=== PATIENT | male | born 1930 | race Caucasian/White ===

== ENCOUNTER → 2016-05-25 | Outpatient (CLI) | payer MEDICARE ==
[~2016-05-25] MED LIST: AMLO10TA2 PO; ASCO500T6 PO; ASPI-808 PO; CALC250T2 PO; CLOP75TA69 PO; CYAN250010 PO; FOLI0.8C PO; HYDR-3812 PO; POTA10CA43 PO; PRAV80TA2 PO; TERA10CA3 PO
--- NOTE | 2016-05-25 13:10 | Diagnostic Imaging Report ---
PROCEDURE: CT chest without contrast. TECHNIQUE: Multiple contiguous axial images were obtained through the chest without the use of intravenous contrast. INDICATION: Lung nodules. FINDINGS: The previous CTA chest exam of 04/24/2015 noted scattered subcentimeter pulmonary nodules in the right lung. The largest of these nodules measured 7 mm and was located along the periphery of the right upper lobe. That finding is again evident on this study and no different (image 23/67). The other pulmonary nodules in the right lung also seem stable when compared to the prior study. The 4 mm nodule in the left upper lung noted on the prior study is not as conspicuous on this exam. There is a 2 mm nodule along the posterior aspect of the left mid lung (image 34/67). This is also unchanged when compared to the prior study. There is no acute cardiopulmonary abnormality identified. There is no sign of failure, pneumonia, or pleural effusion. The heart size is within normal limits. Dense coronary artery calcifications are noted. The aorta is not abnormally dilated. There is no mediastinal or hilar adenopathy, although this exam is limited in evaluation of adenopathy due to the absence of intravenous contrast. The thyroid gland is unremarkable. The bone windows show no evidence for a fracture or for destructive lesion. The sections through the upper abdomen fail to show any sign of an acute abnormality. As noted on the prior study, the gallbladder is surgically absent. IMPRESSION: 1. The small noncalcified pulmonary nodules seen in both lungs on the prior study are again evident and do not appear to have changed adversely. Most likely, these nodules are benign. I would recommend that a six-month followup CT chest exam be performed for continued evaluation. 2. There is no evidence for an acute cardiopulmonary abnormality. 3. There is extensive coronary artery disease. Dictated by: Dictated on workstation # [id number]
== END ==
LOC: RAD 10:33
PROVIDERS: ATTEND Internal Medicine Critical Care Medicine
DX: R91.8 Other nonspecific abnormal finding of lung field (principal); R06.00 Dyspnea, unspecified
CPT/HCPCS: 71250

== ENCOUNTER → 2017-05-06 | Outpatient (CLI) | payer MEDICARE ==
[~2017-05-06] MED LIST changes: +ACHD5005 PO; -HYDR-3812 PO
--- NOTE | 2017-05-06 10:41 | Diagnostic Imaging Report ---
PROCEDURE: CT chest without contrast. TECHNIQUE: Multiple contiguous axial images were obtained through the chest without the use of intravenous contrast. INDICATION: Dyspnea. COPD. COMPARISON: 05/05/2016 FINDINGS: Evaluation of the lung gu demonstrates no focal consolidation, pleural effusion, nor pneumothorax. Multiple small micronodules are noted bilaterally and are stable. These are as follows: * Small 2 mm subpleural micronodule within the posterior margins of the superior segment of the left lower lobe (image 35, series 2). * 4 mm micronodule is also noted within the anterior margins of the right middle lobe (Image 35, series 2). * Punctate 2 mm micronodule is also noted within the lateral subpleural margins of the right lower lobe (image 37, series 2). * 2 mm micronodule is identified slightly more superiorly also within the right lower lobe and is stable (image 34, series 2). No new pulmonary nodules or masses are identified. Cardiomediastinal structures show normal heart size. There is no large pericardial effusion. There is marked calcified coronary atherosclerosis and moderate calcified atherosclerosis of the aorta. No pathologically enlarged or morphologically abnormal adenopathy is seen within the mediastinum, jarad, nor axilla. Bony structures show age-related degenerative changes. No acute abnormalities are seen. Included portions of the upper abdomen are unremarkable. IMPRESSION: 1. Multiple bilateral small micronodules. Again, these all appear stable when compared to 04/24/2015. Stability suggests benignity. 2. No new pulmonary nodules or masses. 3. No other acute cardiopulmonary process. 4. Significant calcified coronary and aortic atherosclerosis. Dictated by: Dictated on workstation # [id number]
== END ==
LOC: RAD 09:51
PROVIDERS: ATTEND Internal Medicine Critical Care Medicine
DX: I70.0 Atherosclerosis of aorta (principal); I25.10 Atherosclerotic heart disease of native coronary artery without angina pectoris; J44.9 Chronic obstructive pulmonary disease, unspecified; R91.8 Other nonspecific abnormal finding of lung field
CPT/HCPCS: 71250

== ENCOUNTER → 2018-06-07 | Outpatient (CLI) | payer MEDICARE ==
[~2018-06-07] MED LIST changes: -AMLO10TA2 PO; +AMLO10TA7 PO; +BARIUM SUSPENSION 105% (LIQUID POLIBAR PLUS) 240 ML/DOSE PO ONE; +BARIUM SUSPENSION 60% (LIQUID EZ PAQUE) 240 ML DOSE PO ONE; +RT-ALBUTEROL SULF 2.5 MG/3 ML PRE-MIX VIAL INH ONE; +RT-ALBUTEROL SULF 2.5 MG/3 ML PRE-MIX VIAL ONE
[2018-06-07 10:10] LABS: CREATININE SERUM 1.29 MG/DL (0.60-1.30)
--- NOTE | 2018-06-07 20:02 | Diagnostic Imaging Report ---
INDICATION: Right neck nodules as well as dysphagia. EXAMINATION: Patient ingested effervescent crystals as well as thin and thick barium and imaging over the esophagus was performed. A total of 1 minute 11 seconds of fluoroscopy was utilized. FINDINGS: The esophagus has a smooth contour. No mass or stricture is identified. No gastroesophageal reflux or hiatal hernia was demonstrated. No significant dysmotility is seen. IMPRESSION: Unremarkable esophagram. Dictated by: Dictated on workstation # [id number]
== END ==
LOC: RAD 09:23
PROVIDERS: ATTEND Nurse Practitioner Family
DX: G47.34 Idiopathic sleep related nonobstructive alveolar hypoventilation (principal); G47.33 Obstructive sleep apnea (adult) (pediatric); R91.8 Other nonspecific abnormal finding of lung field; R13.10 Dysphagia, unspecified
CPT/HCPCS: 36415; 74220; 82565; 84520; 94060; 94726; 94729